=== PATIENT | female | born 1965 | race Caucasian/White ===

== ENCOUNTER 2020-09-22 18:01 | Emergency (ER) | payer BC ==
[2020-09-22 18:10] VITALS: RESP 18
[2020-09-22] MEDS ORDERED: ALBUTEROL HFA INHALER INHALATION PRN (18:14)
[2020-09-22] MEDS ORDERED: SODIUM CHLORIDE 0.9% 1,000 ML IV STA (18:14)
[2020-09-22] MEDS ORDERED: ALBUTEROL HFA INHALER INHALATION STA (18:14)
[2020-09-22] MEDS ORDERED: ACETAMINOPHEN TAB 500 MG TAB PO PRN (18:14)
[2020-09-22] MEDS ORDERED: ACETAMINOPHEN TAB 500 MG TAB PO STA (18:14)
--- NOTE | 2020-09-22 18:17 | ED ---
General Adult HPI - General Chief complaint: Shortness of Breath Stated complaint: +COVID, SOB Time Seen by Provider: 09/22/20 18:05 Source: patient, EMS, RN notes reviewed Mode of arrival: EMS Limitations: no limitations - History of Present Illness Initial comments: Patient is a pleasant 55-year-old female sitting to the emergency Department with cough and difficult to breathing. Patient tested positive for Covid a few days ago. Patient does have occasional brown sputum with cough. Patient does feel short of breath. No leg pain or leg swelling. Patient does have fever or chills and myalgias. Patient has metallic taste in her mouth. Patient did have nausea vomiting and diarrhea however those symptoms have resolved. No Tylenol today. No history of chronic lung problems. - Related Data Home Medications Medication Instructions Recorded Confirmed Levothyroxine Sodium [Synthroid] 100 mcg PO DAILY 09/22/20 09/22/20 Previous Rx's Medication Instructions Recorded Ondansetron Odt [Zofran Odt] 4 mg PO Q8HR PRN #10 tab 09/22/20 Allergies Allergy/AdvReac Type Severity Reaction Status Date / Time No Known Allergies Allergy Verified 09/22/20 18:56 Review of Systems ROS Statement: Those systems with pertinent positive or pertinent negative responses have been documented in the HPI. ROS Other: All systems not noted in ROS Statement are negative. Constitutional: Reports: fever, chills Eyes: Denies: eye pain ENT: Denies: ear pain Respiratory: Reports: cough, dyspnea Cardiovascular: Denies: chest pain Endocrine: Reports: fatigue Gastrointestinal: Reports: nausea, vomiting, diarrhea. Denies: abdominal pain Genitourinary: Denies: dysuria Musculoskeletal: Denies: back pain Skin: Denies: rash Neurological: Denies: weakness Past Medical History Past Medical History: Thyroid Disorder History of Any Multi-Drug Resistant Organisms: None Reported Past Surgical History: No Surgical Hx Reported Smoking Status: Never smoker Past Alcohol Use History: None Reported Past Drug Use History: None Reported General Exam Limitations: no limitations General appearance: alert, in no apparent distress Head exam: Present: normocephalic Eye exam: Present: normal appearance Neck exam: Present: normal inspection Respiratory exam: Present: normal lung sounds bilaterally Cardiovascular Exam: Present: regular rate, normal rhythm GI/Abdominal exam: Present: soft. Absent: tenderness Extremities exam: Present: normal inspection. Absent: pedal edema, calf tenderness Neurological exam: Present: alert Psychiatric exam: Present: normal affect, normal mood Skin exam: Present: normal color Course Vital Signs 09/22/20 09/22/20 09/22/20 18:03 18:29 19:54 Temperature 100.0 F H 99.3 F Pulse Rate 92 80 Respiratory 18 18 Rate Blood Pressure 142/94 124/83 O2 Sat by Pulse 98 96 95 Oximetry EKG Findings - EKG Comments: EKG Findings:: Normal sinus rhythm 94. MS 156. QRS 92. QT 448. QTC 560. Normal axis. Normal QRS. Nonspecific ST-T. Medical Decision Making - Medical Decision Making Patient reevaluated and feeling much better. Pulse ox 97% on room air. Patient updated on results. Patient is comfortable with discharge home. - Lab Data Result diagrams: 09/22/20 18:27 09/22/20 18:27 Lab Results 09/22/20 09/22/20 09/22/20 Range/Units 18:27 18:27 18:27 WBC 5.5 (3.8-10.6) k/uL RBC 5.39 (3.80-5.40) m/uL Hgb 15.1 (11.4-16.0) gm/dL Hct 45.7 (34.0-46.0) % MCV 84.8 (80.0-100.0) fL MCH 27.9 (25.0-35.0) pg MCHC 32.9 (31.0-37.0) g/dL RDW 13.7 (11.5-15.5) % Plt Count 133 L (150-450) k/uL MPV 9.9 Neutrophils % 65 % Lymphocytes % 27 % Monocytes % 6 % Eosinophils % 1 % Basophils % 1 % Neutrophils # 3.6 (1.3-7.7) k/uL Lymphocytes # 1.5 (1.0-4.8) k/uL Monocytes # 0.3 (0-1.0) k/uL Eosinophils # 0.0 (0-0.7) k/uL Basophils # 0.0 (0-0.2) k/uL PT 9.8 (9.0-12.0) sec INR 0.9 (<1.2) APTT 24.6 (22.0-30.0) sec Sodium 137 (137-145) mmol/L Potassium 3.1 L (3.5-5.1) mmol/L Chloride 99 (98-107) mmol/L Carbon Dioxide 27 (22-30) mmol/L Anion Gap 11 mmol/L BUN 14 (7-17) mg/dL Creatinine 0.68 (0.52-1.04) mg/dL Est GFR (CKD-EPI)AfAm >90 (>60 ml/min/1.73 sqM) Est GFR (CKD-EPI)NonAf >90 (>60 ml/min/1.73 sqM) Glucose 101 H (74-99) mg/dL Plasma Lactic Acid Luis Angel (0.7-2.0) mmol/L Calcium 8.9 (8.4-10.2) mg/dL Magnesium 2.2 (1.6-2.3) mg/dL Total Bilirubin 1.0 (0.2-1.3) mg/dL AST 36 (14-36) U/L ALT 25 (4-34) U/L Alkaline Phosphatase 62 (38-126) U/L Lactate Dehydrogenase 722 H (313-618) U/L C-Reactive Protein 61.4 H (<10.0) mg/L Total Protein 7.4 (6.3-8.2) g/dL Albumin 4.4 (3.5-5.0) g/dL 09/22/20 Range/Units 18:27 WBC (3.8-10.6) k/uL RBC (3.80-5.40) m/uL Hgb (11.4-16.0) gm/dL Hct (34.0-46.0) % MCV (80.0-100.0) fL MCH (25.0-35.0) pg MCHC (31.0-37.0) g/dL RDW (11.5-15.5) % Plt Count (150-450) k/uL MPV Neutrophils % % Lymphocytes % % Monocytes % % Eosinophils % % Basophils % % Neutrophils # (1.3-7.7) k/uL Lymphocytes # (1.0-4.8) k/uL Monocytes # (0-1.0) k/uL Eosinophils # (0-0.7) k/uL Basophils # (0-0.2) k/uL PT (9.0-12.0) sec INR (<1.2) APTT (22.0-30.0) sec Sodium (137-145) mmol/L Potassium (3.5-5.1) mmol/L Chloride (98-107) mmol/L Carbon Dioxide (22-30) mmol/L Anion Gap mmol/L BUN (7-17) mg/dL Creatinine (0.52-1.04) mg/dL Est GFR (CKD-EPI)AfAm (>60 ml/min/1.73 sqM) Est GFR (CKD-EPI)NonAf (>60 ml/min/1.73 sqM) Glucose (74-99) mg/dL Plasma Lactic Acid Luis Angel 2.2 H* (0.7-2.0) mmol/L Calcium (8.4-10.2) mg/dL Magnesium (1.6-2.3) mg/dL Total Bilirubin (0.2-1.3) mg/dL AST (14-36) U/L ALT (4-34) U/L Alkaline Phosphatase (38-126) U/L Lactate Dehydrogenase (313-618) U/L C-Reactive Protein (<10.0) mg/L Total Protein (6.3-8.2) g/dL Albumin (3.5-5.0) g/dL - Radiology Data Radiology results: image reviewed (Chest x-ray does show interstitial and mild infiltrates and atelectasis at lung bases.) Disposition Clinical Impression: COVID-19 Disposition: HOME SELF-CARE Condition: Stable Instructions (If sedation given, give patient instructions): Acute Cough (ED), Fever in Adults (ED) Additional Instructions: [id number] Tylenol as needed for fever or chills or muscle aches. [id number] vitamin D, vitamin C, and zinc. Return for difficulty breathing, not tolerating fluids, worsening or change in symptoms or other concerns. Prescription for nausea medicine has been sent to the pharmacy. [place] [facility] in [facility] Prescriptions: Ondansetron Odt [Zofran Odt] 4 mg PO Q8HR PRN #10 tab PRN Reason: Nausea Is patient prescribed a controlled substance at d/c from ED?: No Referrals: Jose Erazo [STAFF PHYSICIAN] - 1-2 days Time of Disposition: 19:57
[2020-09-22 18:51] LABS: Basophils % (A) 1 %; Eosinophils % (A) 1 %; HCT 45.7 % (34.0-46.0); HGB 15.1 gm/dL (11.4-16.0); Lymphocytes # (A) 1.5 k/uL (1.0-4.8); Lymphocytes % (A) 27 %; MCH 27.9 pg (25.0-35.0); MCHC 32.9 g/dL (31.0-37.0); MCV 84.8 fL (80.0-100.0); Mean Platelet Volume 9.9; Monocytes # (A) 0.3 k/uL (0-1.0); Monocytes % (A) 6 %; Neutrophils # (A) 3.6 k/uL (1.3-7.7); Neutrophils % (A) 65 %; Platelet Count 133 k/uL (150-450); RBC 5.39 m/uL (3.80-5.40); RDW 13.7 % (11.5-15.5); WBC 5.5 k/uL (3.8-10.6)
--- NOTE | 2020-09-22 18:59 | XR ---
EXAMINATION TYPE: XR chest 1V portable DATE OF EXAM: 09/22/2020 COMPARISON: NONE HISTORY: Short of breath TECHNIQUE: FINDINGS: A single view of the chest shows some mild patchy interstitial density and subsegmental ate lectasis at the lung bases. There is no heart failure. Heart size is normal. There are chest leads. IMPRESSION: Interstitial mild infiltrates and subsegmental atelectasis at the lung bases.
[2020-09-22 19:03] LABS: ALT 25 U/L (4-34); AST 36 U/L (14-36); African American GFR (CKD) >90 (>60 ml/min/1.73 sqM); Albumin 4.4 g/dL (3.5-5.0); Alkaline Phosphatase 62 U/L (38-126); Anion Gap 11 mmol/L; Blood Urea Nitrogen 14 mg/dL (7-17); C Reactive Protein 61.4 mg/L (<10.0); Calcium 8.9 mg/dL (8.4-10.2); Carbon Dioxide 27 mmol/L (22-30); Chloride 99 mmol/L (98-107); Glucose 101 mg/dL (74-99); LDH 722 U/L (313-618); Magnesium 2.2 mg/dL (1.6-2.3); Non-African American GFR(CKD) >90 (>60 ml/min/1.73 sqM); Potassium 3.1 mmol/L (3.5-5.1); Sodium 137 mmol/L (137-145); Total Protein 7.4 g/dL (6.3-8.2)
[2020-09-22 19:17] LABS: INR 0.9 (<1.2); Partial Thromboplastin Time 24.6 sec (22.0-30.0); Prothrombin Time 9.8 sec (9.0-12.0)
[2020-09-22] MEDS ORDERED: POTASSIUM CHLORIDE ER 20 MEQ TAB.ER PO STA (19:36)
[2020-09-22 19:55] VITALS: BP 124/83; PULSE 80; TEMP 99.3
[2020-09-22] MEDS ORDERED: ALBUTEROL HFA INHALER INHALATION SCH (20:00)
[2020-09-23 07:52] LABS: Ferritin 627.9 ng/mL (10.0-291.0)
== END 2020-09-22 21:02 | disposition home or self-care (01) ==
LOC: EC 18:01
DX: U07.1 COVID-19 (principal); E07.9 Disorder of thyroid, unspecified; Z79.890 Hormone replacement therapy
CPT/HCPCS: 36415; 71045; 80053; 82728; 83605; 83615; 83735; 84145; 85025; 85610; 85730; 86140; 87040; 93005; 94640; 96360; 99285